=== PATIENT | female | born 1995 | race American Indian/Alaskan Native ===

== ENCOUNTER 2020-01-09 16:35 | Emergency (ER) | payer MEDICAID ==
[2020-01-09 17:32] LABS: Bacteria,Urine 1+ /HPF (Negative); Bilirubin,Urine NEG (Negative); Blood,Urine NEG (Negative); Color,Urine Yellow (Yellow); Mucus,Urine 2+ /HPF; Protein,Urine <15 mg/dL mg/dL (Negative)
[2020-01-09 17:33] LABS: HCG Qualitative,Urine Positive (Negative)
[2020-01-09 19:57] VITALS: BP 126/65
--- NOTE | 2020-01-09 20:20 | Emergency Department Report ---
ED Female HPI - General Chief complaint: Abdominal Pain Stated complaint: ABD PAIN Time Seen by Provider: 01/09/20 20:12 Source: patient Mode of arrival: Ambulatory Limitations: No Limitations - History of Present Illness Initial comments: 24-year-old -[place] female presents to the emergency room complaining of abdominal pain for the past month. She denies any nausea vomiting. She reports intermittent diarrhea and constipation. She denies any vaginal bleeding vaginal discharge. Last menstrual period was 12/12/2019. Patient denies any urinary urgency or frequency or dysuria. Onset/Timin -: month(s) Location: suprapubic Severity scale (0 -10): 5 Quality: aching Consistency: intermittent Improves with: none Worsens with: none Are you Now?: No Last Menstrual Period: 01/12/20 EDC: 10/18/20 Associated Symptoms: denies other symptoms. denies: vaginal discharge, vaginal bleeding, nausea/vomiting, fever/chills - Related Data Sexually active: Yes : 1 Para: 1 Allergies Allergy/AdvReac Type Severity Reaction Status Date / Time No Known Allergies Allergy Unverified 01/09/20 16:47 ED Review of Systems ROS: Stated complaint: ABD PAIN Other details as noted in HPI Comment: All other systems reviewed and negative ED Past Medical Hx - Past Medical History Previous Medical History?: Yes Hx Asthma: Yes - Surgical History Past Surgical History?: No - Social History Smoking Status: Current Every Day Smoker Substance Use Type: None ED Physical Exam - General Limitations: No Limitations General appearance: alert, in no apparent distress - Head Head exam: Present: atraumatic, normocephalic - Eye Eye exam: Present: normal appearance - ENT ENT exam: Present: mucous membranes moist - Neck Neck exam: Present: normal inspection - Respiratory Respiratory exam: Present: normal lung sounds bilaterally. Absent: respiratory distress - Cardiovascular Cardiovascular Exam: Present: regular rate, normal rhythm. Absent: systolic murmur, diastolic murmur, rubs, gallop - GI/Abdominal GI/Abdominal exam: Present: soft, tenderness (Suprapubic), normal bowel sounds. Absent: distended - Rectal Rectal exam: Present: deferred - Extremities Exam Extremities exam: Present: normal inspection, full ROM - Back Exam Back exam: Present: normal inspection, full ROM - Neurological Exam Neurological exam: Present: alert, oriented X3, normal gait - Psychiatric Psychiatric exam: Present: normal affect, normal mood - Skin Skin exam: Present: warm, dry, intact, normal color. Absent: rash ED Course Vital Signs 01/09/20 16:49 Temperature 98.2 F Pulse Rate 77 Respiratory 18 Rate Blood Pressure 126/65 O2 Sat by Pulse 99 Oximetry ED Medical Decision Making - Lab Data Laboratory Tests 01/09/20 01/09/20 17:10 21:16 HCG, Quant 283.5 H Urine Color Yellow Urine Turbidity Slightly cloudy Urine pH 5.0 Ur Specific [place] 1.019 Urine Protein <15 mg/dl Urine Glucose (UA) Neg Urine Ketones 80 Urine Blood Neg Urine Nitrite Neg Urine Bilirubin Neg Urine Urobilinogen 2.0 Ur Leukocyte Esterase Sm Urine WBC (Auto) 3.0 Urine RBC (Auto) 3.0 U Epithel Cells (Auto) 21.0 H Urine Bacteria (Auto) 1+ Urine Mucus 2+ Urine HCG, Qual Positive A - Radiology Data Radiology results: report reviewed Patient: SANJAY CHAIDEZ MR#: [id number] : 1995 Acct:[id number] Age/Sex: 24 / F ADM Date: 01/09/20 Loc: ED Attending Dr: Ordering Physician: LEENA GARCIA Date of Service: 01/09/20 Procedure(s): OB transvaginal Accession Number(s): [id number] cc: LEENA GARCIA TRANSABDOMINAL AND TRANSVAGINAL OB PELVIC ULTRASOUND INDICATION / CLINICAL INFORMATION: Abdominal pain. Positive test. COMPARISON: None available. FINDINGS: TRANSABDOMINAL: The uterus measures 8.5 x 5.3 x 6.2 cm. The endometrial stripe measures 1.4 cm AP. I do not identify an intrauterine . The left ovary measures 4.6 x 3.4 x 3.9 cm and contains a 3.5 cm ovoid simple cyst. There is normal blood flow to the left ovary on Doppler exam. The right ovary is not well seen. TRANSVAGINAL: The right ovary measures 3.5 x 2.0 x 2.2 cm. There is normal blood flow to the right ovary on Doppler exam. There is a small amount of free fluid in the cul-de-sac. The endometrial stripe measures 1.2 cm AP. No evidence of an intrauterine is seen. IMPRESSION: 1. No evidence of intrauterine or extrauterine . 2. 3.5 cm simple left ovarian cyst. Small amount of free fluid in the cul-de-sac. Signer Name: Jaylen Drew MD Signed: 01/09/2020 9:49 PM Workstation Name: [id number] Transcribed By: RT Dictated By: Jaylen Drew MD Electronically Authenticated By: Jaylen Drew MD Signed Date/Time: 01/09/202148 DD/ 42 TD/TT: - Medical Decision Making 24-year-old -[place] female presents to the emergency room complaining of abdominal pain for the past month. She denies any nausea vomiting. She reports intermittent diarrhea and constipation. She denies any vaginal bleeding vaginal discharge. Last menstrual period was 12/12/2019. Patient denies any urinary urgency or frequency or dysuria. hCG is been ordered, ultrasound less than 14 weeks pelvis and transvaginal. Critical care attestation.: If time is entered above; I have spent that time in minutes in the direct care of this critically ill patient, excluding procedure time. ED Disposition Clinical Impression: Positive blood test, Abdominal pain Disposition: DC-01 TO HOME OR SELFCARE Is pt being admited?: No Does the pt Need Aspirin: No Condition: Stable Instructions: Abdominal Pain (ED) Additional Instructions: Lab work was back for positive . Ultrasound does not show intrauterine gestation at this time as it is very early into the . I recommend for you to follow-up either here in the emergency room in 2 days to have a repeat hCG or follow-up at [facility] You will need to have a repeat ultrasound in 2 weeks. You can only take Tylenol for pain. I recommend starting your vitamins. I recommend increasing your water intake by 2 to 3 L daily. Return back to the emergency room sooner if you start having worsening abdominal pain. Vaginal bleeding vaginal discharge. Referrals: PRIMARY CARE, [Primary Care Provider] - 3-5 Days [facility] [Provider Group] - 3-5 Days [facility] [Provider Group] - 3-5 Days [facility] [Provider Group] - 3-5 Days Forms: Work/School Release Form(ED)
--- NOTE | 2020-01-09 21:53 | Ultrasound Report ---
TRANSABDOMINAL AND TRANSVAGINAL OB PELVIC ULTRASOUND INDICATION / CLINICAL INFORMATION: Abdominal pain. Positive test. COMPARISON: None available. FINDINGS: TRANSABDOMINAL: The uterus measures 8.5 x 5.3 x 6.2 cm. The endometrial stripe measures 1.4 cm AP. I do not identify an intrauterine . The left ovary measures 4.6 x 3.4 x 3.9 cm and contains a 3.5 cm ovoid simple cyst. There is normal blood flow to the left ovary on Doppler exam. The right ova ry is not well seen. TRANSVAGINAL: The right ovary measures 3.5 x 2.0 x 2.2 cm. There is normal blood flow to the right ov toñito on Doppler exam. There is a small amount of free fluid in the cul-de-sac. The endometrial stripe measures 1.2 cm AP. No evidence of an intrauterine is seen. IMPRESSION: 1. No evidence of intrauterine or extrauterine . 2. 3.5 cm simple left ovarian cyst. Small amount of free fluid in the cul-de-sac. Signer Name: Jaylen Drew MD Signed: 01/09/2020 9:49 PM Workstation Name: [id number]
== END 2020-01-09 22:35 | disposition home or self-care (01) ==
LOC: ED 16:35
DX: O34.81 Maternal care for other abnormalities of pelvic organs, first trimester (principal); N83.292 Other ovarian cyst, left side; O99.331 Smoking (tobacco) complicating pregnancy, first trimester; O99.511 Diseases of the respiratory system complicating pregnancy, first trimester; J45.909 Unspecified asthma, uncomplicated; Z3A.01 Less than 8 weeks gestation of pregnancy
CPT/HCPCS: 36415; 76801; 76802; 76817; 81001; 81025; 84702

== ENCOUNTER 2020-06-22 10:24 | Outpatient (CLI) | payer MEDICAID ==
[2020-06-22] MEDS ORDERED: LACTATED RINGERS 1,000 ML IV SCH (11:00)
[2020-06-22] MEDS ORDERED: LACTATED RINGERS 500 ML IV ONE (11:00)
[2020-06-22 11:33] LABS: Bilirubin,Urine NEG (Negative); Blood,Urine NEG (Negative); Color,Urine Yellow (Yellow); Mucus,Urine FEW /HPF; Urobilinogen,Urine < 2.0 mg/dL (<2.0)
[2020-06-22 12:05] VITALS: BP 127/66
[2020-06-22] MEDS ORDERED: ONDANSETRON 4 MG/2 ML INJ IV ONE (12:35)
== END 2020-06-22 12:56 | disposition home or self-care (01) ==
LOC: TRG 10:24 → APU 10:27 → TRG 12:56
PROVIDERS: ATTEND Obstetrics & Gynecology
DX: O21.2 Late vomiting of pregnancy (principal); O26.892 Other specified pregnancy related conditions, second trimester; R10.9 Unspecified abdominal pain; O47.02 False labor before 37 completed weeks of gestation, second trimester; O99.512 Diseases of the respiratory system complicating pregnancy, second trimester; J45.909 Unspecified asthma, uncomplicated; Z87.891 Personal history of nicotine dependence; Z3A.27 27 weeks gestation of pregnancy
CPT/HCPCS: 59025; 81001; 96361; 96374; J2405; J7120; 96360

== ENCOUNTER 2020-08-17 17:48 | Outpatient (CLI) | payer MEDICAID ==
[2020-08-17] MEDS ORDERED: LACTATED RINGERS 500 ML IV ONE (18:47)
[2020-08-17 19:14] LABS: Bilirubin,Urine NEG (Negative); Blood,Urine NEG (Negative); Color,Urine Straw (Yellow); Mucus,Urine FEW /HPF; Protein,Urine <15 mg/dL mg/dL (Negative); Urobilinogen,Urine < 2.0 mg/dL (<2.0); WBC,Urine < 1.0 /HPF (0.0-6.0)
--- NOTE | 2020-08-18 08:06 | Ultrasound Report ---
LIMITED OBSTETRICAL ULTRASOUND HISTORY: labor. FINDINGS: Limited obstetrical ultrasound was performed. A single viable intrauterine is in the cephalic position. heart tones are 153 bpm. Biophysical profile is normal at 8/8. Amniotic fluid index is 8.7 cm. IMPRESSION: 1. Viable intrauterine in the cephalic position. 2. Biophysical profile is normal at 8/8. Signer Name: Hector Quezada MD Signed: 08/17/2020 8:00 PM Workstation Name: [id number]
== END 2020-08-17 20:12 | disposition home or self-care (01) ==
LOC: TRG 17:48 → APU 17:48 → TRG 20:12
PROVIDERS: ATTEND Obstetrics & Gynecology
DX: O36.8130 Decreased fetal movements, third trimester, not applicable or unspecified (principal); Z3A.35 35 weeks gestation of pregnancy
CPT/HCPCS: 59025; 76815; 76819; 81001

== ENCOUNTER 2020-09-16 05:57 | Inpatient (IN) | payer MEDICAID ==
[2020-09-16] MEDS ORDERED: LACTATED RINGERS 1,000 ML ONE (06:11)
[2020-09-16] MEDS ORDERED: ePHEDrine SULFATE 50 MG/1 ML INJ IV PRN (06:48)
[2020-09-16] MEDS ORDERED: TERBUTALINE 1 MG/1 ML INJ SUB-Q PRN (06:48)
[2020-09-16] MEDS ORDERED: MINERAL OIL 30 ML ORAL LIQD PO PRN (06:48)
[2020-09-16] MEDS ORDERED: LIDOCAINE (2%) 20 MG/1 ML VIAL 20 ML MDV INFILTRATI ONE ×2 (06:48→08:56)
[2020-09-16] MEDS ORDERED: fentaNYL 100 MCG/2 ML INJ IV ONE (06:50)
[2020-09-16 06:59] LABS: Hematocrit 33.1 % (30.3-42.9); Hemoglobin 11.5 gm/dl (10.1-14.3); Mean Corpuscular HGB Conc 35 % (30-34); Mean Corpuscular Volume 88 fl (79-97); Platelet Count 297 K/mm3 (140-440); Red Blood Count 3.75 M/mm3 (3.65-5.03); Red Cell Distribution Width 14.7 % (13.2-15.2)
[2020-09-16] MEDS ORDERED: OXYTOCIN DRIP 30 UNITS/500 ML BAG IV SCH ×2 (07:00)
[2020-09-16] MEDS ORDERED: LACTATED RINGERS 1,000 ML IV SCH (07:00)
--- NOTE | 2020-09-16 07:38 | History and Physical Report ---
History of Present Illness Date of examination: 09/16/20 Date of admission: 09/16/20 05:59 Chief complaint: I'm in labor History of present illness: Patient is a 24-year-old 2 para 1 who presents with regular contractions and was found to be dilated to 8 cm in triage. She is 39 weeks and 6 days with an EDC of 09/17/2020. She started care at 12 weeks. Her course was complicated by positive HSV without any outbreak and a positive chlam ydia result early in with a test of cure that was negative. Past History Past Medical History: no pertinent history Past Surgical History: no surgical history [facility] History: chlamydia, herpes Family/Genetic History: none Social history: single - Obstetrical History Expected Date of Delivery: 09/17/20 Actual Gestation: 39 Week(s) 6 Day(s) : 2 Para: 1 Number of Living Children: 1 Medications and Allergies Allergies Allergy/AdvReac Type Severity Reaction Status Date / Time No Known Allergies Allergy Unverified 01/09/20 16:47 Active Meds: Active Medications Ephedrine Sulfate (Ephedrine Sulfate 50 Mg/1 Ml Inj) 10 mg IV Q2M PRN PRN Reason: Hypotension Oxytocin/Sodium Chloride (Pitocin/Ns 30 Unit/500ml) 30 units in 500 mls @ 2 mls/hr IV TITR JUVENTINO; Protocol Lactated Ringer's (Lactated Ringers) 1,000 mls @ 125 mls/hr IV DIRECT JUVENTINO Oxytocin/Sodium Chloride (Pitocin/Ns 30 Unit/500ml) 30 units in 500 mls @ 40 mls/hr IV TITR JUVENTINO; Protocol Mineral Oil (Mineral Oil 30 Ml Oral Liqd) 30 ml PO QHS PRN PRN Reason: Constipation Terbutaline Sulfate (Terbutaline 1 Mg/1 Ml Inj) 0.25 mg SUB-Q ONCE PRN PRN Reason: Hyperstimulation/Hypertonicity Review of Systems All systems: negative Genitourinary: pelvic pain, contractions - Vital Signs Vital signs: Vital Signs Resp 20 09/16/20 06:58 Temp Pulse Resp BP Pulse Ox 66 20 137/74 97 09/16/20 07:34 09/16/20 06:58 09/16/20 07:12 09/16/20 07:34 - Physical Exam Breasts: Positive: deferred Cardiovascular: Regular rate, Normal S1, Normal S2 Lungs: Positive: Clear to auscultation, Normal air movement Abdomen: Positive: normal appearance, soft, normal bowel sounds. Negative: distention, tenderness Genitourinary (Female): Positive: normal external genitalia, normal perenium Vulva: both: normal Vagina: Positive: normal moisture. Negative: discharge Cervix: Negative: lesion, discharge Uterus: Positive: normal size, normal contour Adnexa: both: normal Anus/Rectum: Positive: heme negative. Negative: rectal mass, hemorrhoids Extremities: Deep Tendon Reflex Grade: Normal +2 - Obstetrical FHR: auscultation normal Cervical Dilatation: 8 Cervical Effacement Percentage: 100 station: -1 Uterine Contraction Pattern: Regular Results Result Diagrams: 09/16/20 07:16 Abnormal lab results 09/16/20 Range/Units 06:05 WBC 13.1 H (4.5-11.0) K/mm3 MCHC 35 H (30-34) % All other labs normal. Assessment and Plan IUP at 39-6/7 weeks here in active labor. Will admit for the same. AROM when able. Patient is progressing fastly and may not have time for epidural. Anticipate .
[2020-09-16 07:41] LABS: Hematocrit 31.6 % (30.3-42.9); Hemoglobin 10.9 gm/dl (10.1-14.3); Mean Corpuscular HGB Conc 34 % (30-34); Mean Corpuscular Volume 88 fl (79-97); Platelet Count 268 K/mm3 (140-440)
--- NOTE | 2020-09-16 09:35 | Procedure Note ---
OB Delivery Note - Delivery Date of Delivery: 09/16/20 Surgeon: TESSA ESPINOZA Estimated blood loss: 200cc - Vaginal Delivery presentation: vertex Delivery position: OA Intrapartum events: none Delivery induction: none Delivery augmentation: rupture of membranes Delivery monitor: external FHT, external uterine Route of delivery: Delivery placenta: spontaneous Delivery cord: 3 umbilical vessels Delivery laceration: 1st degree Delivery repair: vicryl Anesthesia: local Delivery comments: Viable male male delivered over intact perineum 7 pounds 12 ounces Apgars 7 and 8. He has spontaneous cry noted also suctioned on the field. Cord was clamped and cut when done pulsating. Placenta was delivered spontaneously and intact. First-degree laceration was repaired with 2-0 Vicryl. There was excellent hemostasis. Patient tolerated procedure well - Infant A at 1 minute: 7 at 5 minutes: 8 Infant Gender: Male
[2020-09-16] MEDS ORDERED: ACETAMINOPHEN 325 MG TAB PO PRN (11:09)
[2020-09-16] MEDS ORDERED: WITCH HAZEL/ GLYCERIN PAD TP PRN (11:09)
[2020-09-16] MEDS ORDERED: ONDANSETRON 4 MG/2 ML INJ IV PRN (11:09)
[2020-09-16] MEDS ORDERED: PROMETHAZINE 25 MG RECT SUPP PR PRN (11:09)
[2020-09-16] MEDS ORDERED: PROMETHAZINE 25 MG TAB PO PRN (11:09)
[2020-09-16] MEDS ORDERED: HYDROcodone/ACETAMINOPHEN 5-325 MG TAB PO PRN (11:09)
[2020-09-16] MEDS ORDERED: LANOLIN/ZINC/DIMETHICONE (LANSINOH) 7 GM TP PRN (11:09)
[2020-09-16] MEDS ORDERED: diphenhydrAMINE 25 MG CAP PO PRN (11:09)
[2020-09-16] MEDS ORDERED: MAGNESIUM HYDROXIDE (MOM) ORAL LIQD UDC PO PRN (11:09)
[2020-09-16] MEDS ORDERED: PRENATAL VIT27-FE FUMARATE-FOLIC ACID VIT TAB PO SCH (12:00)
[2020-09-16 12:08] LABS: Band Neutrophils # (Manual) 0.3 K/mm3; Platelet Estimate Consistent w Auto; RBC Morphology Normal; Total Cells Counted 100
[2020-09-16] MEDS: IBUPROFEN 600 MG TAB PO SCH (16:16)
[2020-09-16 22:00] LABS: Hematocrit 30.2 % (30.3-42.9); Hemoglobin 10.4 gm/dl (10.1-14.3)
[2020-09-16] MEDS: DOCUSATE SODIUM 100 MG CAP PO SCH (22:03)
[2020-09-17] MEDS: IBUPROFEN 600 MG TAB PO SCH ×3 (05:49→17:19)
[2020-09-17] MEDS: DOCUSATE SODIUM 100 MG CAP PO SCH (12:02)
--- NOTE | 2020-09-17 13:03 | Progress Note ---
Assessment and Plan PPD 1 s/p . Doing well. Pt is having some issues with . SHe has also tested positive for Covid. Subjective - Subjective Date of service: 09/17/20 Interval history: Patient is a 24-year-old 2 para 1 who presents with regular contractions and was found to be dilated to 8 cm in triage. She is 39 weeks and 6 days with an EDC of 09/17/2020. She started care at 12 weeks. Her course was complicated by positive HSV without any outbreak and a positive chlamydia result early in with a test of cure that was negative. Patient reports: appetite normal, voiding normally, pain well controlled, ambulating normally : doing well Objective - Vital Signs Latest vital signs: Vital Signs Temp Pulse Resp BP BP Pulse Ox 09/17/20 09:06 97.7 F 67 18 118/54 100 09/17/20 03:48 97.8 F 57 L 18 106/61 99 09/16/20 23:02 98.3 F 71 18 122/68 99 09/16/20 16:02 97.8 F 77 19 112/71 100 Intake and Output 09/16/20 09/17/20 09/17/20 22:59 06:59 14:59 Intake Total 640 480 Balance 640 480 Intake: Oral 300 Intake, Free Water 340 480 Other: Total, Intake Amount 300 # Voids Void 2 3 - Exam Breasts: Present: deferred Cardiovascular: Present: Regular rate, Normal S1, Normal S2 Lungs: Present: Clear to auscultation, Normal air movement Abdomen: Present: normal appearance, soft, normal bowel sounds Uterus: Present: normal, firm Extremities: Present: normal - Labs Labs: Abnormal lab results 09/16/20 09/16/20 Range/Units 21:19 Unknown Hct 30.2 L (30.3-42.9) % Coronavirus (PCR) Positive A (Negative)
--- NOTE | 2020-09-17 13:07 | Discharge Summary ---
Providers - Providers Date of Admission: 09/16/20 05:59 Date of discharge: 09/17/20 Attending physician: LEE ANN COLLINS Primary care physician: LEE ANN COLLINS Hospitalization Reason for admission: active labor Delivery: Episiotomy: none Laceration: 1st degree Discharge diagnosis: IUP at term delivered Bath baby: male Hospital course: unremarkable Condition at discharge: Good Disposition: DC-01 TO HOME OR SELFCARE Plan - Discharge Medications Prescriptions: Ibuprofen [Motrin 600 MG tab] 600 mg PO Q6H #40 tablet HYDROcodone/APAP 5-325 [[place] 5-325 mg TAB] 2 each PO Q6H PRN #15 tablet PRN Reason: Pain, Moderate (4-6) - Provider Discharge Summary Activity: routine, no sex for 6 weeks, no heavy lifting 4 weeks, no strenuous exercise Diet: routine Instructions: routine Additional instructions: [] Smoking cessation referral if applicable(refer to patient education folder for contact #) [] Refer to [facility]'s [facility] Booklet Call your doctor immediately for: * Fever > 100.5 * Heavy vaginal bleeding ( >1 pad per hour) * Severe persistent headache * Shortness of breath * Reddened, hot, painful area to leg or breast * Drainage or odor from incision. * Keep incision clean and dry at all times and follow doctor's instructions regarding bathing/showering - Follow up plan Follow up: LEE ANN COLLINS MD [Primary Care Provider] - 6 Weeks
[2020-09-17 18:38] VITALS: BP 115/58
== END 2020-09-17 18:20 | disposition home or self-care (01) | DRG 774 ==
LOC: TRG 05:57 → APU 05:58 → TRG 05:59 → LD 05:59 → OB 10:25
PROVIDERS: ADMIT Obstetrics & Gynecology; ATTEND Obstetrics & Gynecology
PROC: 10E0XZZ Delivery of Products of Conception, External Approach (ICD-10-PCS; principal; 2020-09-16)
PROC: 0HQ9XZZ Repair Perineum Skin, External Approach (ICD-10-PCS; 2020-09-16)
DX: O98.52 Other viral diseases complicating childbirth (principal); U07.1 COVID-19; O70.0 First degree perineal laceration during delivery; Z37.0 Single live birth; Z3A.39 39 weeks gestation of pregnancy
CPT/HCPCS: 36415; 59025; 85007; 85014; 85018; 85025; 85027; 86592; 86850; 86900; 86901; G0378; J2590; J3010; U0003